=== PATIENT | male | born 1960 | race Caucasian/White ===

== ENCOUNTER → 2016-09-26 05:50 | Day surgery (SDC) | payer OTHER ==
[~2016-09-26 05:50] MED LIST: Buffered Lidocaine 1% SYR 3ML* 3 ML/SYR SYRINGE INTRADERM ONE; Bupivacaine 0.5% SDV PF* 30 ML VIAL ONE; Chloroprocaine 2%* 20 ML VIAL ONE; Dexamethasone IV* 4 MG/ML 1 ML (4 MG) IV SLOW PU ONE; Dexamethasone IV* 4 MG/ML 1 ML (4 MG) ONE; EPINEPHrine AMP 1 MG/ML ONE; Famotidine IV* 10 MG/ML 2 ML (20 mg) IV ONE; Famotidine IV* 10 MG/ML 2 ML (20 mg) ONE; Ketorolac INJ* 30 MG/ML 1 ML VIAL ONE; Midazolam* 1 MG/ML 2 ML VIAL (2 MG) ONE; Ondansetron INJ* 2 MG/ML VIAL IV PRN; Ondansetron INJ* 2 MG/ML VIAL ONE; Propofol* 10 MG/ML 20 ML BTL IV PUSH ONE; ceFAZolin 2 GM PREMIX (*) 2 GM/50 ML BAG IVPB ONE; fentaNYL* 50 MCG/ML 2 ML VIAL (100 MCG VIAL) ONE; methylPREDNISolone ACETATE 80* 80 MG/ML 1 ML VIAL ONE; oxyCODONE/Acetamin 5/325 MG* TAB ONE; oxyCODONE/Acetamin 5/325 MG* TAB PO PRN
[2016-09-26] MEDS: fentaNYL* 50 MCG/ML 2 ML VIAL (100 MCG VIAL) IV PRN ×2 (10:05→10:19)
[2016-09-26 10:33] VITALS: BP 120/85
--- NOTE | 2016-09-26 14:28 | OP ---
DATE OF OPERATION: 09/26/16 - [facility] DATE OF : 56 SURGEON: Keysha Barkley MD [employer] ASSOCIATE ATTORNEY: SAMIR Stanford ANESTHESIOLOGIST: Dr. Lan. ANESTHESIA: Spinal. PRE-OP DIAGNOSIS: Right knee medial meniscal tear, [id number] osteoarthritis. POST-OP DIAGNOSIS: Right knee medial meniscal tear, lateral meniscal tear, mild -to- moderate osteoarthritis. OPERATIVE PROCEDURE: Right knee arthroscopy with partial medial meniscectomy and partial lateral meniscectomy. EBL: Less than 25 cc. COMPLICATIONS: None. SPECIMEN: None. BRIEF HISTORY/INDICATIONS: Mr. Hwang is a 56-year-old gentleman with three months of increasingly severe right knee pain along the medial joint line. He failed conservative treatment with rest, ice, elevation and antiinflammatories. He had decreased quality of life and was unable to continue his normal activities. An MRI showed some arthritic changes as well as the medial meniscal tear. The patient elected to have right knee arthroscopy with partial meniscectomy due to continued pain and decreased quality of life. Informed consent was obtained from the patient. He understood the risks of the procedure included but were not limited to bleeding, infection, damage to nearby structures, continued pain, need for further surgery, stroke, heart attack, blood clot and . He wished to proceed. INTRAOPERATIVE FINDINGS: Intraoperatively, the patient was noted to have complex degenerative type tear involving the posterior one-half of the medial meniscus in the white-red zone mainly. He also had a radial type tear in the posterior one-third of the lateral meniscus in the white-white and white-red zone. The patient was noted to have some grade 2 and 3 Outerbridge cartilage changes in the medial compartment along the medial femoral condyle, some grade 2 and 3 Outerbridge cartilage changes in the lateral compartment along the lateral tibial plateau, and some grade 3 and 4 Outerbridge cartilage changes in the patellofemoral compartment. DESCRIPTION OF PROCEDURE: Mr. Hwang was identified in the preanesthesia unit. His right lower extremity was marked as the correct operative site. Informed consent was signed and placed in the chart. The patient was taken to the operating room and placed under spinal anesthesia without difficulty. Right lower extremity was prepped and draped in the usual sterile fashion. Preop time-out was made to correctly identify the patient side and site. Appropriate perioperative antibiotics were given within 1 hour of incision. A 0.5 cm anterior lateral portal incision was made with a 15 blade and carried down to the capsule. Trocar was introduced. As soon as the light and water sources were turned on, there was immediate visualization of the suprapatellar pouch. A tour of the knee joint was performed. Patellofemoral compartment showed some grade 3 and 4 Outerbridge cartilage changes but no large cartilage flaps. Significant degeneration and frayed cartilage along medial and lateral patellar facets. Medial gutters showed a small amount of inflammatory tissue but no plica or loose body. The medial compartment showed some grade 2 and 3 Outerbridge cartilage changes along the medial femoral condyle cartilage. Posterior meniscus had an obvious complex degenerative type tear. ACL and PCL appeared to be intact. Knee was placed in the [id number] position. Lateral meniscus had a radial tear in the posterior aspect. Lateral tibial plateau cartilage was frayed with grade 2 and 3 Outerbridge cartilage changes. Lateral gutters showed no loose body or plica. Under direct visualization, a medial portal incision was made. A probe was introduced and a second tour of the knee joint was performed. No additional findings were noted. A straight biter as well as shaver was used to perform partial medial meniscectomy. This was a complex degenerative type tear with both linear and radial aspects. A smooth border was obtained in the white-red zone. A probe was used to ensure no further flaps or displaced fragments. Electrode frequency ablation wand was used to further smooth the edge of the meniscus. Next, the knee was placed in a [id number] position. Straight biter and shaver were used to perform partial lateral meniscectomy of the radial tear in the white- white and white-red zone. A smooth border was easily obtained. Radiofrequency ablation wand was used to conservatively remove some anterior inflammatory tissue along the anteromedial joint line. Next, the knee was copiously irrigated with sterile saline. All instruments were carefully removed. The incisions were closed using interrupted 3-0 nylon suture. An intraarticular injection of 80 mg Depo-Medrol and 6 cc 0.25% Marcaine was placed in the knee joint. Incisions were covered with Xeroform, 4x4's and Webril. Melecio wrap and cold pack were placed over this. The patient's anesthesia was reversed without difficulty. He was taken to the PACU in stable condition. Intended weightbearing will be weightbearing as tolerated. Intended DVT prophylaxis will be aspirin. [id number]/[facility] #: [id number] [facility]
== END | disposition home or self-care (01) ==
LOC: OR 05:50
PROVIDERS: ATTEND Orthopaedic Surgery Adult Reconstructive Orthopaedic Surgery
DX: M23.203 Derangement of unspecified medial meniscus due to old tear or injury, right knee (principal); M23.200 Derangement of unspecified lateral meniscus due to old tear or injury, right knee; M17.11 Unilateral primary osteoarthritis, right knee; J45.909 Unspecified asthma, uncomplicated
CPT/HCPCS: A9270-GY; J0171; J0690; J1040; J1100; J1885; J2250; J2400; J2405; J2704; J3010